=== PATIENT | male | born 1995 | race Caucasian/White ===

== ENCOUNTER 2018-10-27 22:12 | Emergency (ER) | payer OTHER ==
[2018-10-28 00:42] LABS: ABS Basophils 0 10^3/ul (0-0.2); ABS Eosinophils 0 10^3/ul (0-0.6); ABS Lymphocytes 1.6 10^3/ul (1.0-4.8); ABS Monocytes 0.7 10^3/ul (0-0.8); ABS Neutrophils 7.3 10^3/ul (1.5-7.7); ABS Nucleated RBC 0 10^3/ul; Eosinophil % 0.1 %; Hematocrit 44 % (36-46); Hemoglobin 15.2 g/dL (14.0-18.0); Lymphocyte % 16.9 %; Mean Corpuscular HGB Conc 34 g/dL (31-36); Mean Corpuscular Hemoglobin 32 pg (27-31); Mean Corpuscular Volume 94 fL (80-94); Nucleated Red Blood Cells % 0.1; Platelet Count 266 10^3/uL (150-450); Red Blood Count 4.69 10^6 /uL (4.18-5.48); Red Cell Distribution Width 13 % (10.5-15); White Blood Count 9.7 10^3/uL (3.5-10.8)
[2018-10-28 01:00] LABS: Albumin 5.1 g/dL (3.2-5.2); BUN/Creatinine Ratio 12.8 (8-20); Calcium 10.3 mg/dL (8.6-10.3); EGFR African American 137.2 (>60); EGFR Non-African American 113.4 (>60); Globulin 2.5 g/dL (2-4); Magnesium 2.1 mg/dL (1.9-2.7); Potassium 3.3 mmol/L (3.5-5.0); Total Bilirubin 0.6 mg/dL (0.2-1.0); Total Protein 7.6 g/dL (6.4-8.9)
[2018-10-28 01:16] LABS: TSH (Thyroid Stimulating Horm) 2.53 mcIU/mL (0.34-5.60)
--- NOTE | 2018-10-28 01:21 | ED ---
Palpitations / Dysrhythmia - HPI Summary HPI Summary: 22-year-old male presents with palpitations today. She states that he was laying down felt that his heart rate went up. This has never happened before. He denies any fever. He states he was very short of breath. Denies any nausea vomiting. No chest pain. States symptoms have resolved. He states that his symptoms last hour. Has no history of heart issues. No family history of palpitations or heart disease. No history of high blood pressure. Denies any drug use. alcohol use last night. - History of Current Complaint Chief Complaint: EDDysrhythmPalp Time Seen by Provider: 10/28/18 00:14 - Allergy/Home Medications Allergies/Adverse Reactions: Allergies Allergy/AdvReac Type Severity Reaction Status Date / Time No Known Allergies Allergy Verified 10/27/18 22:20 PMH/Surg Hx/FS Hx/Imm Hx Endocrine/Hematology History: Denies: Hx Anticoagulant Therapy Respiratory History: Denies: Hx Asthma - Immunization History Immunizations Up to Date: Yes Infectious Disease History: No Infectious Disease History: Denies: Traveled Outside the [place] in Last 30 Days - Family History Known Family History: Positive: Hypertension - Social History Alcohol Use: Occasionally Substance Use Type: Reports: None Smoking Status (MU): Never Smoked Tobacco Review of Systems Negative: Fever Positive: Palpitations. Negative: Chest Pain Positive: Shortness Of Breath. Negative: Cough Negative: Abdominal Pain All Other Systems Reviewed And Are Negative: Yes Physical Exam Triage Information Reviewed: Yes Vital Signs On Initial Exam: Initial Vitals Temp Pulse Resp BP Pulse Ox 99.5 F 118 18 168/97 100 10/27/18 22:17 10/27/18 22:17 10/27/18 22:17 10/27/18 22:17 10/27/18 22:17 Vital Signs Reviewed: Yes Appearance: Positive: Well-Appearing Skin: Positive: Warm, Dry Head/Face: Positive: Normal Head/Face Inspection Eyes: Positive: Normal, EOMI, KIAH, Conjunctiva Clear ENT: Positive: Normal ENT inspection, Pharynx normal, TMs normal Respiratory/Lung Sounds: Positive: Clear to Auscultation, Breath Sounds Present Cardiovascular: Positive: Normal, RRR Abdomen Description: Positive: Nontender, Soft Bowel Sounds: Positive: Present Musculoskeletal: Positive: Normal Neurological: Positive: Normal Psychiatric: Positive: Normal Diagnostics - Vital Signs Vital Signs Temp Pulse Resp BP Pulse Ox 10/28/18 01:00 86 14 99 10/28/18 00:50 96 12 146/91 100 10/28/18 00:46 108 7 153/94 100 10/28/18 00:41 85 16 141/83 100 10/28/18 00:11 87 15 139/89 99 10/27/18 22:17 99.5 F 118 18 168/97 100 - Laboratory Lab Results: Lab Results 10/28/18 10/28/18 10/28/18 Range/Units 00:34 00:34 00:34 WBC 9.7 (3.5-10.8) 10^3/uL RBC 4.69 (4.18-5.48) 10^6 /uL Hgb 15.2 (14.0-18.0) g/dL Hct 44 (36-46) % MCV 94 (80-94) fL MCH 32 H (27-31) pg MCHC 34 (31-36) g/dL RDW 13 (10.5-15) % Plt Count 266 (150-450) 10^3/uL MPV 9.0 (7.4-10.4) fL Neut % (Auto) 75.1 % Lymph % (Auto) 16.9 % T[place] % (Auto) 7.4 % Eos % (Auto) 0.1 % Baso % (Auto) 0.5 % Absolute Neuts (auto) 7.3 (1.5-7.7) 10^3/ul Absolute Lymphs (auto) 1.6 (1.0-4.8) 10^3/ul Absolute Monos (auto) 0.7 (0-0.8) 10^3/ul Absolute Eos (auto) 0 (0-0.6) 10^3/ul Absolute Basos (auto) 0 (0-0.2) 10^3/ul Absolute Nucleated RBC 0 10^3/ul Nucleated RBC % 0.1 D-Dimer, Quantitative < 200 (Less Than 230) ng/mL Sodium 140 (135-145) mmol/L Potassium 3.3 L (3.5-5.0) mmol/L Chloride 105 (101-111) mmol/L Carbon Dioxide 24 (22-32) mmol/L Anion Gap 11 (2-11) mmol/L BUN 11 (6-24) mg/dL Creatinine 0.86 (0.67-1.17) mg/dL Est GFR ( Amer) 137.2 (>60) Est GFR (Non-Af Amer) 113.4 (>60) BUN/Creatinine Ratio 12.8 (8-20) Glucose 92 (70-100) mg/dL Calcium 10.3 (8.6-10.3) mg/dL Magnesium 2.1 (1.9-2.7) mg/dL Total Bilirubin 0.60 (0.2-1.0) mg/dL AST 35 (13-39) U/L ALT 29 (7-52) U/L Alkaline Phosphatase 76 (34-104) U/L Total Protein 7.6 (6.4-8.9) g/dL Albumin 5.1 (3.2-5.2) g/dL Globulin 2.5 (2-4) g/dL Albumin/Globulin Ratio 2.0 (1-3) TSH 2.53 (0.34-5.60) mcIU/mL Result Diagrams: 10/28/18 00:34 10/28/18 00:34 Lab Statement: Any lab studies that have been ordered have been reviewed, and results considered in the medical decision making process. - EKG No standard instances Cardiac Rate: Tachycardia EKG Rhythm: Sinus Tachycardia Summary of EKG Findings: sinus tachycardia Course/Dx - Course Course Of Treatment: 22-year-old male presents with palpitations today. She states that he was laying down felt that his heart rate went up. This has never happened before. He denies any fever. He states he was very short of breath. Denies any nausea vomiting. No chest pain. States symptoms have resolved. He states that his symptoms last hour. Has no history of heart issues. No family history of palpitations or heart disease. No history of high blood pressure. Denies any drug use. alcohol use last night. On exam patient is in sinus rhythm. Lungs clear to auscultation. EKG shows sinus tach. Blood cell count normal. Lites normal except for potassium was low at 3.2 so supplemented. tsh normal. Will follow with primary. Patient understands agrees with plan. - Diagnoses Differential Diagnosis/HQI/PQRI: Positive: Hypokalemia, Hyperventilation, Pulmonary Embolism Provider Diagnoses: Palpitations Discharge - Sign-Out/Discharge Documenting (check all that apply): Patient Departure Patient Received Moderate/Deep Sedation with Procedure: No - Discharge Plan Condition: Good Disposition: HOME Patient Education Materials: Heart Palpitations (ED) Referrals: [facility] [Outside] Additional Instructions: Establish care with primary Take deep breaths Return to ED if develop any new or worsening symptoms - Billing Disposition and Condition Condition: GOOD Disposition: Home
[2018-10-28] MEDS ORDERED: Potassium Chlor TAB* 20 MEQ TAB.ER PO ONE (01:27)
[2018-10-28 01:46] VITALS: BP 123/73
== END 2018-10-28 01:46 | disposition home or self-care (01) ==
LOC: ED 22:12
DX: R00.2 Palpitations (principal)
CPT/HCPCS: 36415; 80053; 83735; 84443; 85025; 85379; 93005; 99282; A9270-GY

== ENCOUNTER 2018-11-25 14:00 | Emergency (ER) | payer OTHER ==
--- NOTE | 2018-11-25 15:15 | ED ---
Shortness of Breath - HPI Summary HPI Summary: This patient is a 23 year old male presenting to [facility] with a chief complaint of SOB since 3 days ago. PAtient states that he has been to the ED for similar symptoms, but they have recurred again in the past few days. In addition to the SOB, patient additionally reports chest tightness that radiates to the shoulders , lightheadedness, and a cough. Patient states that he nearly passed out while lifting weights the other day, so has remained low exertion since. The pain is rated 0/10 in severity. Symptoms aggravated by nothing. Symptoms alleviated by nothing. - History of Current Complaint Chief Complaint: EDDizziness Time Seen by Provider: 11/25/18 14:55 Hx Obtained From: Patient Onset/Duration: Still Present Timing: Constant Current Severity: Mild Aggrevating Factors: Nothing Alleviating Factors: Nothing Associated Signs & Symptoms: Cough (Nonproductive), Dizzy - Allergy/Home Medications Allergies/Adverse Reactions: Allergies Allergy/AdvReac Type Severity Reaction Status Date / Time No Known Allergies Allergy Verified 11/25/18 14:05 PMH/Surg Hx/FS Hx/Imm Hx Previously Healthy: No Endocrine/Hematology History: Denies: Hx Anticoagulant Therapy Respiratory History: Denies: Hx Asthma Opthamlomology History: Denies: Hx Legally Blind EENT History: Denies: Hx Deafness Infectious Disease History: No Infectious Disease History: Denies: Traveled Outside the [place] in Last 30 Days - Family History Known Family History: Positive: Hypertension - Social History Alcohol Use: Occasionally Hx Substance Use: No Substance Use Type: Reports: None Hx Tobacco Use: No Smoking Status (MU): Never Smoked Tobacco Review of Systems Negative: Fever Positive: Chest Pain - tightness Positive: Shortness Of Breath, Cough Neurological: Other - lightheadedness All Other Systems Reviewed And Are Negative: Yes Physical Exam - Summary Physical Exam Summary: Appearance: The patient is well-nourished in no acute distress and in no acute pain. Skin: The skin is warm and dry and skin color reflects adequate perfusion. HEENT: The head is normocephalic and atraumatic. The pupils are equal and reactive. The conjunctivae are clear and without drainage. Nares are patent and without drainage. Mouth reveals moist mucous membranes and the throat is without erythema and exudate. The external ears are intact. The ear canals are patent and without drainage. The tympanic membranes are intact. Neck: The neck is supple with full range of motion and non-tender. There are no carotid bruits. There is no neck vein distension. Respiratory: Chest is non-tender. Lungs are clear to auscultation and breath sounds are symmetrical and equal. Cardiovascular: Heart is regular rate and rhythm. There is no murmur or rub auscultated. There is no peripheral edema and pulses are symmetrical and equal. Abdomen: The abdomen is soft and non-tender. There are normal bowel sounds heard in all four quadrants and there is no organomegaly palpated. Musculoskeletal: There is no back tenderness noted. Extremities are non-tender with full range of motion. There is good capillary refill. There is no peripheral edema or calf tenderness elicited. Neurological: Patient is alert and oriented to person, place and time. The patient has symmetrical motor strength in all four extremities. Cranial nerves are grossly intact. Deep tendon reflexes are symmetrical and equal in all four extremities. Psychiatric: The patient has an appropriate affect and does not exhibit any anxiety or depression. Triage Information Reviewed: Yes Vital Signs On Initial Exam: Initial Vitals Temp Pulse Resp BP Pulse Ox 98.0 F 97 16 138/119 98 11/25/18 14:03 11/25/18 14:03 11/25/18 14:03 11/25/18 14:03 11/25/18 14:03 Vital Signs Reviewed: Yes Diagnostics - Vital Signs Vital Signs Temp Pulse Resp BP Pulse Ox 11/25/18 14:03 98.0 F 97 16 138/119 98 - Laboratory Result Diagrams: 11/25/18 15:47 11/25/18 15:47 Lab Statement: Any lab studies that have been ordered have been reviewed, and results considered in the medical decision making process. - EKG 1532 Cardiac Rate: NL EKG Rhythm: Sinus Rhythm - 71 BPM Summary of EKG Findings: An EKG, taken 153, reveals NSR (71 BPM), early repolarization, normal ST, no ectopy, no STEMI. Unchanged from 10/27/18. Course/Dx - Course Course Of Treatment: Mr. Dia presented with a chief complaint of chest tightness, shortness of breath and lightheadedness for the last few days. He had a much more dramatic episode a few days ago and came to the emergency department where he was ruled out. This has been less dramatic but fairly continuous. He was nontoxic in the nurse's stable vital signs. EKG was unchanged from the other day showing only an early repolarization and labs were unremarkable. His lungs were clear but this could represent some bronchospasm. I recommended follow-up with [facility] who may consider pulmonary testing or conversely further cardiac evaluation with echo. This could also be anxiety and after speaking with the patient's mother I'm going to start him on a low dose of Xanax on a when necessary basis for a very short period - Diagnoses Provider Diagnoses: SOB (shortness of breath), Anxiety Discharge - Sign-Out/Discharge Documenting (check all that apply): Patient Departure Patient Received Moderate/Deep Sedation with Procedure: No - Discharge Plan Condition: Stable Disposition: HOME Prescriptions: ALPRAZolam TAB* [Xanax TAB*] 0.25 mg PO Q6H PRN #10 tab MDD 4 PRN Reason: Anxiety Patient Education Materials: Anxiety (ED), Shortness of Breath (ED) Referrals: No Primary Care Phys,NOPCP [Primary Care Provider] - [facility] - [facility]iden RAM[facility]REZ [[employer] APPLICATION, OTHER] - 1 Week Additional Instructions: Follow up at [facility] within the week. Return to the ED for any new or worsening symptoms. - Billing Disposition and Condition Condition: STABLE Disposition: Home - Attestation Statements Document Initiated by [place]: Yes Documenting Scribe: Nacho Cortez Provider For Whom [place] is Documenting (Include Credential): Oh Beard MD Scribe Attestation: Nacho Angulo, scribed for Oh Beard MD on 11/26/18 at 1055. Scribe Documentation Reviewed: Yes Provider Attestation: The documentation as recorded by the Nacho alford accurately reflects the service I personally performed and the decisions made by me, Oh Beard MD Status of Scribe Document: Viewed
[2018-11-25 15:55] LABS: ABS Basophils 0.1 10^3/ul (0-0.2); ABS Lymphocytes 1.7 10^3/ul (1.0-4.8); ABS Monocytes 0.5 10^3/ul (0-0.8); ABS Neutrophils 6.2 10^3/ul (1.5-7.7); Eosinophil % 0.3 %; Hematocrit 44 % (42-52); Hemoglobin 15.3 g/dL (14.0-18.0); Lymphocyte % 19.7 %; Mean Corpuscular HGB Conc 35 g/dL (31-36); Mean Corpuscular Hemoglobin 33 pg (27-31); Mean Corpuscular Volume 94 fL (80-94); Mean Platelet Volume 8.7 fL (7.4-10.4); Platelet Count 252 10^3/uL (150-450); Red Blood Count 4.72 10^6 /uL (4.18-5.48); Red Cell Distribution Width 13 % (10.5-15); White Blood Count 8.4 10^3/uL (3.5-10.8)
[2018-11-25 16:09] LABS: Anion Gap 10 mmol/L (2-11); Blood Urea Nitrogen 13 mg/dL (6-24); CO2 Carbon Dioxide 22 mmol/L (22-32); Calcium 10.3 mg/dL (8.6-10.3); Chloride 106 mmol/L (101-111); Globulin 2.5 g/dL (2-4); Glucose 82 mg/dL (70-100); Potassium 3.4 mmol/L (3.5-5.0); Sodium 138 mmol/L (135-145); Total Protein 7.5 g/dL (6.4-8.9)
[2018-11-25 16:10] LABS: ALT 23 U/L (7-52); AST 19 U/L (13-39); Alkaline Phosphatase 71 U/L (34-104); C Reactive Protein < 1.00 mg/L (<8.01)
[2018-11-25 16:46] LABS: BUN/Creatinine Ratio 14.3 (8-20); EGFR African American 127.3 (>60); EGFR Non-African American 105.2 (>60)
[2018-11-25 18:09] VITALS: BP 117/80
== END 2018-11-25 18:09 | disposition home or self-care (01) ==
LOC: ED 14:00
DX: R06.02 Shortness of breath (principal); F41.9 Anxiety disorder, unspecified
CPT/HCPCS: 36415; 80053; 85025; 85379; 86140; 93005; 99283